=== PATIENT | male | born 1940 | race Caucasian/White ===

== ENCOUNTER 2019-05-10 17:51 | Inpatient (IN) | payer SELFPAY ==
[~2019-05-10] VITALS: Ht 167.6 cm; Wt 81.6 kg
[2019-05-10 19:30] LABS: MEAN CORPUSCULAR HEMOGLOBIN 24.8 pg (28.0-32.0); MEAN CORPUSCULAR VOLUME 77.6 fL (80.0-94.0); MEAN PLATELET VOLUME 7.9 fl (7.4-10.4); PLATELET 312 x1000/uL (130-400); RED BLOOD CELL COUNT 2.36 mill/uL (4.7-6.1); RED CELL DISTRIBUTION WIDTH 17.8 % (11.6-14.6)
[2019-05-10 19:33] LABS: HEMATOCRIT. 18.3 % (42.0-52.0); HEMOGLOBIN. 5.8 g/dL (14.0-18.0)
[2019-05-10 19:38] LABS: CHLORIDE 110 mEq/L (98-107)
[2019-05-10 19:46] LABS: PLATELET ESTIMATE NORMAL
[2019-05-10] MEDS ORDERED: DIPHENHYDRAMINE 25MG CAPSULE PO ONE (20:30)
[2019-05-10] MEDS ORDERED: FUROSEMIDE 20MG/2ML VIAL IVP NR (23:15)
[2019-05-11] VITALS (15 sets, daily range): BP systolic 98–128; BP diastolic 40–88
[2019-05-11] MEDS ORDERED: DEXT 5%/0.9% NACL 1,000 ML IV SCH (01:30)
[2019-05-11 01:51] LABS: CLARITY URINE CLEAR (CLEAR); COLOR URINE YELLOW (YELLOW); KETONES URINE NEGATIVE (NEGATIVE); LEUKOCYTE ESTERASE URINE NEGATIVE (NEGATIVE); NITRITE URINE NEGATIVE (NEGATIVE); OCCULT BLOOD URINE NEGATIVE (NEGATIVE); PROTEIN URINE TRACE (NEGATIVE); SPECIFIC GRAVITY URINE 1.016 (1.005-1.030)
[2019-05-11 02:21] LABS: *AMPHETAMINES SCREEN URINE NEGATIVE (NEGATIVE); *BARBITURATES SCREEN URINE NEGATIVE (NEGATIVE); *BENZODIAZEPINES SCREEN URINE NEGATIVE (NEGATIVE); *COCAINE SCREEN URINE NEGATIVE (NEGATIVE); METHADONE URINE SCREEN NEGATIVE (NEGATIVE)
[2019-05-11 02:22] LABS: CANNABINOID URINE SCREEN NEGATIVE (NEGATIVE); OPIATES URINE SCREEN NEGATIVE (NEGATIVE); PHENCYCLIDINE URINE SCREEN NEGATIVE (NEGATIVE)
[2019-05-11] MEDS: PANTOPRAZOLE SODIUM 40 MG/VIAL IV SCH (08:49)
[2019-05-11 11:24] LABS: HEMOGLOBIN 7.6 g/dL (14.0-18.0)
[2019-05-11] MEDS ORDERED: PERMETHRIN 5% CREAM 60GM TOP NR (20:00)
[2019-05-12] VITALS: BP 120/43
[2019-05-12 04:00] VITALS: BP 120/43
[2019-05-12 08:00] VITALS: BP 129/54
[2019-05-12] MEDS: PANTOPRAZOLE SODIUM 40 MG/VIAL IV SCH (09:44)
[2019-05-12 12:00] VITALS: BP 149/71
[2019-05-12 16:00] VITALS: BP 129/50
[2019-05-12 20:00] VITALS: BP 121/65
[2019-05-13] VITALS: BP 131/56
[2019-05-13 04:00] VITALS: BP 126/76
[2019-05-13 08:00] VITALS: BP 123/86
[2019-05-13] MEDS: PANTOPRAZOLE SODIUM 40 MG/VIAL IV SCH (08:36)
[2019-05-13 12:00] VITALS: BP 141/78
[2019-05-13 16:00] VITALS: BP 129/55
[2019-05-13 20:00] VITALS: BP 123/50
[2019-05-14] VITALS (7 sets, daily range): BP systolic 110–136; BP diastolic 50–75
[2019-05-14] MEDS: PANTOPRAZOLE SODIUM 40 MG/VIAL IV SCH (08:23)
[2019-05-14 16:14] LABS: CHLORIDE 112 mEq/L (98-107)
[2019-05-14 16:16] LABS: BASOPHILS % 0.6 % (0.0-2.0); EOSINOPHILS % 4.4 % (0.0-5.0); HEMOGLOBIN. 7.8 g/dL (14.0-18.0); LYMPHOCYTES % 12.3 % (20.0-50.0); MEAN CORPUSCULAR HEMOGLOBIN 25.9 pg (28.0-32.0); MEAN CORPUSCULAR VOLUME 80.1 fL (80.0-94.0); MEAN PLATELET VOLUME 7.7 fl (7.4-10.4); MONOCYTES % 13.3 % (2.0-8.0); NEUTROPHILS % 69.4 % (40.0-76.0); PLATELET 298 x1000/uL (130-400); RED CELL DISTRIBUTION WIDTH 18.9 % (11.6-14.6)
[2019-05-15] VITALS: BP 128/68
[2019-05-15 04:00] VITALS: BP 130/69
[2019-05-15 08:00] VITALS: BP 114/56
[2019-05-15] MEDS: PANTOPRAZOLE SODIUM 40 MG/VIAL IV SCH (09:02)
[2019-05-15 12:00] VITALS: BP 117/64
[2019-05-15 12:35] VITALS: BP 117/64
== END 2019-05-15 15:41 | disposition home or self-care (01) | DRG 663 ==
LOC: ER 17:51 → 7WST 20:27 → ENRESERV 21:11 → 7WST 05-11 00:18
PROVIDERS: ADMIT Hospitalist; ATTEND Hospitalist
PROC: 30233N1 Transfusion of Nonautologous Red Blood Cells into Peripheral Vein, Percutaneous Approach (ICD-10-PCS; principal; 2019-05-11)
DX: D50.9 Iron deficiency anemia, unspecified (principal); G93.41 Metabolic encephalopathy; Z59.0 Homelessness; I10 Essential (primary) hypertension
CPT/HCPCS: 36415; 71045; 80053; 80305; 80320; 81003; 83880; 84484; 85014; 85018; 85025; 86850; 86900; 86920; 93005; 99291; C9113; P9016; P9021; Q0163; G0480